=== PATIENT | female | born 1985 | race Caucasian/White ===

== ENCOUNTER 2025-07-14 20:07 | Inpatient (IN) | payer OTHER ==
[~2025-07-14] VITALS: Ht 154.9 cm; Wt 62.7 kg
[2025-07-14 21:13] LABS: PLATELET COUNT (AUTO) 367 K/uL (150-450); RED BLOOD CELL COUNT(AUTO) 5.19 MIL/uL (4.00-5.20); RED CELL DISTRIBUTION WIDTH 17.2 % (11.5-14.5); WHITE BLOOD COUNT (AUTO) 9.7 K/uL (4.5-11.0)
[2025-07-14 21:21] LABS: CALCIUM, TOTAL 8.1 mg/dL (8.8-10.5); CREATININE 0.72 mg/dL (0.60-1.30); GLOMERULAR FILTR. RATE CALC > 60 mL/min (>60); GLUCOSE,RANDOM 110 mg/dL (70-110); SODIUM SERUM 143 mmol/L (136-145); UREA NITROGEN, BLOOD 9 mg/dL (7-18)
[2025-07-14 21:33] LABS: ALCOHOL, BLOOD (SERUM) 442.0 mg/dL (0-10)
[2025-07-14 21:41] LABS: ASPARTATE AMINOTRANSFERASE 46.0 U/L (15-37); TOTAL PROTEIN, SERUM 7.9 g/dL (6.4-8.2)
[2025-07-14] MEDS ORDERED: MAGNESIUM HYDROXIDE SUSPENSION 30 ML UDCUP PO PRN (23:45)
[2025-07-14] MEDS ORDERED: ACETAMINOPHEN 325 MG TABLET PO PRN (23:45)
[2025-07-14] MEDS ORDERED: POTASSIUM CHL 10 MEQ/WATER 50 ML IV PRN (23:45)
[2025-07-15] VITALS (11 sets, daily range): BP systolic 118–146; BP diastolic 73–89; PULSE 78–114; RESP 17–19; TEMP 98.2–99.9; O2SAT 95–99
[2025-07-15] MEDS: LORazepam 2 MG/ML VIAL IVP PRN (00:44)
[2025-07-15] MEDS: 1: MAGNESIUM SULFATE 2 GM, MVI, ADULT NO.1 WITH VIT K 10 ML, THIAMINE 100 MG, FOLIC ACID IV SCH (00:47)
[2025-07-15 01:17] LABS: APPEARANCE,URINE HAZY (CLEAR); GLUCOSE, URINE (UA) NEGATIVE (NEGATIVE); LEUKOCYTE ESTERASE ,URINE NEGATIVE (NEGATIVE); NITRATE,URINE NEGATIVE (NEGATIVE); OCCULT BLOOD,URINE LARGE (NEGATIVE); PH,URINE DRUG SCREEN 6.0 (5.0-8.0); SPECIFIC GRAVITIY, URINE 1.015 (1.003-1.030)
[2025-07-15 01:31] LABS: AMPHET/METH SCREEN,URINE NEGATIVE (NEGATIVE); BARBITURATE SCREEN, URINE NEGATIVE (NEGATIVE); CANNABINOID SCREEN,URINE POSITIVE (NEGATIVE); COCAINE SCREEN,URINE NEGATIVE (NEGATIVE); METHADONE SCREEN, URINE NEGATIVE (NEGATIVE)
[2025-07-15 01:32] LABS: ALCOHOL, URINE DRUG SCREEN POSITIVE (NEGATIVE)
[2025-07-15 01:42] LABS: CALCIUM OXALATE CRYSTALS,UR Few /LPF (None Seen); HYALINE CASTS, URINE 0-2 /LPF (None Seen); SQUAMOUS EPITHELIAL CELL,UR Moderate /LPF (None Seen)
[2025-07-15 03:37] LABS: COVID AG,FIA SOURCE NASAL SWAB
[2025-07-15 03:51] LABS: SARS-COV2 (COVID) ANTIGEN,FIA Negative (Negative)
[2025-07-15] MEDS: POTASSIUM CHLORIDE 20 MEQ ER TABLET PO PRN (04:18)
[2025-07-15] MEDS: PANTOPRAZOLE SODIUM 40 MG/VIAL IVP SCH (08:41)
[2025-07-15 12:09] LABS: CALCIUM, TOTAL 7.8 mg/dL (8.8-10.5); CREATININE 0.54 mg/dL (0.60-1.30); GLOMERULAR FILTR. RATE CALC > 60 mL/min (>60); GLUCOSE,RANDOM 82 mg/dL (70-110); SODIUM SERUM 138 mmol/L (136-145); UREA NITROGEN, BLOOD 10 mg/dL (7-18)
[2025-07-15] MEDS ORDERED: SODIUM CHLORIDE 0.9% 1,000 ML ONE (14:33)
[2025-07-15] MEDS: FOLIC ACID 1 MG TABLET PO SCH (17:35)
[2025-07-15] MEDS: MULTIVITAMINS WITH MINERALS, THERAPEUTIC TABLET PO SCH (17:36)
[2025-07-15] MEDS: CYANOCOBALAMIN 1,000 MCG/ML VIAL IM ONE (18:33)
[2025-07-15] MEDS: THIAMINE 100 MG TABLET PO SCH (21:05)
[2025-07-16] MEDS: ONDANSETRON HCL 4 MG/2 ML VIAL IVP PRN (03:34)
[2025-07-16 04:04] VITALS: BP 132/76; PULSE 77; RESP 18; TEMP 98.6; O2SAT 98
[2025-07-16 06:47] LABS: CALCIUM, TOTAL 7.8 mg/dL (8.8-10.5); CREATININE 0.53 mg/dL (0.60-1.30); GLOMERULAR FILTR. RATE CALC > 60 mL/min (>60); GLUCOSE,RANDOM 89 mg/dL (70-110); SODIUM SERUM 139 mmol/L (136-145); UREA NITROGEN, BLOOD 9 mg/dL (7-18)
[2025-07-16 07:01] LABS: PLATELET COUNT (AUTO) 261 K/uL (150-450); RED BLOOD CELL COUNT(AUTO) 4.44 MIL/uL (4.00-5.20); RED CELL DISTRIBUTION WIDTH 16.7 % (11.5-14.5); WHITE BLOOD COUNT (AUTO) 5.3 K/uL (4.5-11.0)
[2025-07-16 08:03] VITALS: BP 136/62; PULSE 106; RESP 20; TEMP 98.4; O2SAT 100
[2025-07-16 12:02] VITALS: BP 133/89; PULSE 99; RESP 18; TEMP 98.6; O2SAT 99
[2025-07-16 15:00] VITALS: BP 135/88; PULSE 105; RESP 18; TEMP 98.1; O2SAT 98
[2025-07-16 15:23] VITALS: BP 135/88; PULSE 105; RESP 18; TEMP 98.1; O2SAT 98
[2025-07-16 20:00] VITALS: BP 124/68; PULSE 75; RESP 18; TEMP 98.8; O2SAT 99
[2025-07-17] VITALS (7 sets, daily range): BP systolic 100–128; BP diastolic 63–71; PULSE 64–79; RESP 16–18; TEMP 98.2–98.6; O2SAT 97–100
[2025-07-17 07:17] LABS: PLATELET COUNT (AUTO) 219 K/uL (150-450); RED BLOOD CELL COUNT(AUTO) 4.54 MIL/uL (4.00-5.20); RED CELL DISTRIBUTION WIDTH 16.9 % (11.5-14.5); WHITE BLOOD COUNT (AUTO) 6.8 K/uL (4.5-11.0)
[2025-07-17 07:27] LABS: CALCIUM, TOTAL 7.8 mg/dL (8.8-10.5); CREATININE 0.47 mg/dL (0.60-1.30); GLOMERULAR FILTR. RATE CALC > 60 mL/min (>60); GLUCOSE,RANDOM 77 mg/dL (70-110); SODIUM SERUM 138 mmol/L (136-145); UREA NITROGEN, BLOOD 8 mg/dL (7-18)
[2025-07-17] MEDS: GABAPENTIN 300 MG CAPSULE PO SCH (13:16)
[2025-07-18 04:18] VITALS: BP 94/53; PULSE 63; RESP 18; TEMP 97.7; O2SAT 98
[2025-07-18 08:23] VITALS: BP 90/56; PULSE 64; RESP 17; TEMP 98.2; O2SAT 99
== END 2025-07-18 09:40 | disposition left against medical advice (07) | DRG 770 ==
LOC: EMS 20:07 → EDH 23:45 → 5S 07-15 05:01
PROVIDERS: ADMIT Internal Medicine; ATTEND Internal Medicine
PROC: GZ52ZZZ Individual Psychotherapy, Cognitive (ICD-10-PCS; principal; 2025-07-17)
DX: F10.229 Alcohol dependence with intoxication, unspecified (principal); F33.2 Major depressive disorder, recurrent severe without psychotic features; F10.239 Alcohol dependence with withdrawal, unspecified; F12.10 Cannabis abuse, uncomplicated; Z53.21 Procedure and treatment not carried out due to patient leaving prior to being seen by health care provider; Z20.822 Contact with and (suspected) exposure to COVID-19; F43.10 Post-traumatic stress disorder, unspecified; F41.9 Anxiety disorder, unspecified; J45.909 Unspecified asthma, uncomplicated; Y90.8 Blood alcohol level of 240 mg/100 ml or more; R45.851 Suicidal ideations; Z87.891 Personal history of nicotine dependence
CPT/HCPCS: 80048; 80076; 80307; 81001; 84132; 85025; 87086; 99285; G0378; G0480; J1200; J1630; J2060; J2405; J2470; J3411; J3420; J3475; J3490; J7030